=== PATIENT | female | born 1980 | race American Indian/Alaskan Native ===

== ENCOUNTER 2019-12-26 07:40 | Day surgery (SDC) | payer BC ==
[2019-12-26] MEDS ORDERED: ASPIRIN EC 325 MG TAB PO NR (08:06)
[2019-12-26] MEDS: SODIUM CHLORIDE 0.9% 500 ML 500 ML IV SCH ×2 (08:35→11:12)
[2019-12-26] MEDS ORDERED: HEPARIN/NS 5000 UNIT/500ML 1,000 ML IR ONE (10:37)
[2019-12-26] MEDS: LIDOCAINE (2%) 20 MG/1 ML VIAL 20 ML MDV INFILTRATI ONE ×2 (11:11→11:21)
[2019-12-26] MEDS: MIDAZOLAM 2 MG/2 ML INJ ONE ×2 (11:11→11:19)
[2019-12-26] MEDS: fentaNYL 100 MCG/2 ML INJ ONE ×2 (11:11→11:19)
[2019-12-26] MEDS: VERAPAMIL 5 MG/2 ML INJ ONE ×2 (11:12→11:23)
[2019-12-26] MEDS: HEPARIN 10,000 UNITS/10 ML VIAL ONE ×2 (11:12→11:23)
[2019-12-26] MEDS: NITROGLYCERIN SYRINGE 3 ML ONE ×2 (11:13→11:23)
--- NOTE | 2019-12-26 11:40 | Short Stay Summary ---
Short Stay Documentation Date of service: 12/26/19 - History H&P: obtained from office - Allergies and Medications Current Medications: Allergies hydrocodone Adverse Reaction (Verified 12/26/19 08:05) Nausea Home Medications Medication Instructions Recorded Confirmed Last Taken Type Albuterol Sulfate [Proair 2 puff INHALATION DAILY PRN 12/26/19 12/26/19 12/25/19 History Respiclick] 2 Fluticasone/Vilanterol [Breo 1 puff INHALATION DAILY 12/26/19 12/26/19 12/25/19 History Ellipta 200-25 Mcg INH] 1 Active Medications Sodium Chloride (Nacl 0.9% 500 Ml) 500 mls @ 50 mls/hr IV DIRECT DERRELL Stop: 12/26/19 18:59 Last Admin: 12/26/19 11:12 Dose: 50 mls/hr Documented by: - Brief post op/procedure progress note Date of procedure: 12/26/19 Pre-op diagnosis: sob Post-op diagnosis: same Procedure: see report Anesthesia: local Estimated blood loss: none Pathology: none - Disposition Condition at discharge: Good Disposition: DC-01 TO HOME OR SELFCARE - Discharge Diagnoses (1) SOB (shortness of breath) on exertion Status: Acute (2) Abnormal stress test Status: Resolved Short Stay Discharge Plan Activity: advance as tolerated Diet: low fat, low cholesterol Wound: keep clean and dry Follow up with: [facility] [Other] - 7 Days
--- NOTE | 2019-12-26 12:00 | Cardiac Catherization Report ---
LEFT HEART CATHETERIZATION DONE BY: Shamar Lara MD ORDERING PHYSICIAN: Dr. Lopez. CLINICAL INFORMATION: A 39-year-old -[place] female with persistent shortness of breath with exertion despite normal LV function on echocardiogram. The patient is here for a left heart catheterization. The patient had a mild abnormality on stress test, so given symptomatology and abnormal stress test, here for heart catheterization. So, procedure was done in moderate sedation, started at 11:14, finished at 11:29, 15 minutes of moderate sedation. DESCRIPTION OF PROCEDURE: Procedure was done via the right radial artery, sterile technique, local anesthesia, 6-Hungarian radial sheath inserted. Left system engaged with JL3.5 catheter. The left main is a large caliber vessel, is patent, trifurcates into a large LAD, it is patent. Diagonal is a medium caliber and patent. Ramus is a large caliber, patent. Circumflex is a large caliber, patent. OM1, medium caliber vessel, patent. RCA engaged with JR4, is a medium caliber vessel, patent with small PDA, PLV. LV gram done in LUCY and ROBERTS view shows normal LV function, EF 55-60%. LVEDP 30 mmHg, LV was 130, aortic is 129/86. No gradient across the aortic valve on pullback. 5-Hungarian catheters all taken over guidewire, 6-Hungarian radial sheath was discontinued. Radial band applied. No hematoma, no bleeding. SUMMARY: Normal coronaries, normal LV function. Continue risk factor modification. Discussed this with the patient and the patient's family. JOB# [id number] KAVITA/BRIGITTE
[2019-12-26 14:18] VITALS: BP 107/59
== END 2019-12-26 15:00 | disposition home or self-care (01) ==
LOC: CATHLABREC 07:40
PROVIDERS: ATTEND Internal Medicine
DX: R06.02 Shortness of breath (principal); R94.39 Abnormal result of other cardiovascular function study; R07.89 Other chest pain; E66.09 Other obesity due to excess calories; E78.49 Other hyperlipidemia; Z98.51 Tubal ligation status; Z79.899 Other long term (current) drug therapy; Z88.8 Allergy status to other drugs, medicaments and biological substances; Z90.49 Acquired absence of other specified parts of digestive tract; Z98.890 Other specified postprocedural states; Z82.61 Family history of arthritis; Z90.710 Acquired absence of both cervix and uterus; Z80.42 Family history of malignant neoplasm of prostate; Z68.39 Body mass index [BMI] 39.0-39.9, adult; Z82.49 Family history of ischemic heart disease and other diseases of the circulatory system; Z86.2 Personal history of diseases of the blood and blood-forming organs and certain disorders involving the immune mechanism
CPT/HCPCS: 93005; 93458; 99156; C1894; J1644; J2250; J3010; J7040; Q9967

== ENCOUNTER 2021-02-23 13:19 | Outpatient (CLI) | payer OTHER | END 2021-02-23 13:20 | disposition home or self-care (01) | LOC: PF 13:19 | PROVIDERS: ATTEND Internal Medicine | DX: Z02.71 Encounter for disability determination (principal) | CPT/HCPCS: 94010; 94729 ==